=== PATIENT | male | born 1975 | race Caucasian/White ===

== ENCOUNTER → 2018-05-21 | Outpatient (CLI) | payer BC ==
--- NOTE | 2018-05-21 09:42 | KCIC ---
Indication:Right and left flank pain. TECHNIQUE: Grayscale, color Doppler and spectral waveform is of the abdomen obtained. COMPARISON:None FINDINGS: No gallstones, pericholecystic fluid or gallbladder wall thickening. Pancreas is suboptimally visualized due to overlying bowel gas. IVC within normal limits. CBD measures 2 mm in diameter and is within normal limits. Main portal vein is patent. Liver measures 15 cm in longest dimension and is normal in size and echogenicity. Right kidney measures 12 cm in length without hydronephrosis. Mid aortic segment not visualized. No aneurysmal dilation of the proximal and distal aortic segment. Spleen measures 11.5 cm in length and is normal in size. Left kidney measures 12.0 cm in length without hydronephrosis. Visualized bladder within normal limits with visualization of bilateral ureteral jets. IMPRESSION: 1. No acute findings. Electronically signed by: Yong Ramos DO (05/21/2018 9:39 AM) [id number]
== END | disposition home or self-care (01) ==
LOC: KCIC US 08:32
DX: R10.9 Unspecified abdominal pain (principal)
CPT/HCPCS: 76700